=== PATIENT | male | born 1995 | race Two or more races ===

== ENCOUNTER 2020-12-31 22:40 | Emergency (ER) | payer MEDICAID, OTHER ==
[~2020-12-31] VITALS: Ht 188 cm; Wt 131.5 kg
[2021-01-01 01:25] VITALS: BP 139/92
== END 2021-01-01 02:16 | disposition home or self-care (01) ==
LOC: ER 22:40
DX: B02.9 Zoster without complications (principal); E66.09 Other obesity due to excess calories

== ENCOUNTER 2025-07-08 15:25 | Emergency (ER) | payer MEDICAID, OTHER ==
[~2025-07-08] VITALS: Ht 188 cm; Wt 129.5 kg
--- NOTE | 2025-07-08 16:08 | ED.PDOC ---
Foreign Body HPI Comments 30 y/o M, presents to the ED for CC of possible foreign body remnant in left hand. Patient states, he accidently drilled into his left hand with a power drill. At this time patient c/o 8/10 pain to his left hand. No other symptoms or modifying factors are present at this time. No active bleed. Patient's tetanus is up-to-date. Chief Complaint: Foreign Body Time Seen by MD: 16:00 History of Present Illness: Nurses Notes, Medications, Allergies Allergies: Coded Allergies: NO KNOWN ALLERGIES (Unverified , 07/08/25) Information Source: Patient Mode of Arrival: Ambulatory Timing: Minutes Duration: Since onset Severity: Moderate Prehospital treatment: None Location: Left, Other (hand) Context: Injury, Accidental Foreign Body: Other (drill) Associated signs and symptoms: None Past Medical History PAST MEDICAL HISTORY: Denies Surgical History: Denies all surgeries Family History Family History: Reviewed,noncontributory to illness, No family hx of Cancer, No family hx of DM, No family hx of Heart anders, No family hx of HTN, No family hx ofKidney anders, No family hx of Liver anders, No family hx of Lung anders, No family hx of Stroke Social History Smoker: Non-Smoker Alcohol: Denies ETOH Use Drugs: Denies Drug Use Lives In: Home Constitutional: denies: chills, diaphoresis, fatigue, fever, malaise, sweats, weakness, others EENTM: denies: blurred vision, double vision, ear bleeding, ear discharge, ear drainage, ear pain, ear ringing, eye pain, eye redness, hearing loss, mouth pain, mouth swelling, nasal discharge, nose bleeding, nose congestion, nose pain, photophobia, tearing, throat pain, throat swelling, voice changes, others Respiratory: denies: cough, hemoptysis, orthopnea, SOB at rest, shortness of breath, SOB with excertion, stridor, wheezing, others Cardiovascular: denies: chest pain, dizzy spells, diaphoresis, Dyspnea on exertion, edema, irregular heart beat, left arm pain, lightheadedness, palpitations, PND, syncope, others Gastrointestinal: denies: abdomen distended, abdominal pain, blood streaked bowels, constipated, diarrhea, dysphagia, difficulty swallowing, hematemesis, melena, nausea, poor appetite, poor fluid intake, rectal bleeding, rectal pain, vomiting, others Genitourinary: denies: burning, dysuria, flank pain, frequency, hematuria, incontinence, penile discharge, penile sore, pain, testicle pain, testicle swelling, urgency, others Neurological: denies: dizziness, fainting, headache, left sided numbness, left sided weakness, numbness, paresthesia, pre-existing deficit, right sided numbness, right sided weakness, seizure, speech problems, tingling, tremors, weakness, others Musculoskeletal: denies: back pain, gout, joint pain, joint swelling, muscle pain, muscle stiffness, neck pain, others Integumetry: reports: wounds (Puncture wound to left hand); denies: bruises, change in color, change in hair/nails, dryness, laceration, lesions, lumps, rash, others Allergic/Immunocompromised: denies: Difficulty Healing, Frequent Infections, Hives, Itching, others Hematologic/Lymphatic: denies: anemia, blood clots, easy bleeding, easy bruising, swollen glands, others Endocrine: denies: excessive hunger, excessive sweating, excessive thirst, excessive urination, flushing, intolerance to cold, intolerance to heat, unexplained weight gain, unexplained weight loss, others Psychiatric: denies: anxiety, bipolar disorder, depression, hopeless, panic disorder, schizophrenia, sleepless, suicidal, others All Other Systems: Reviewed and Negative Physical Exam General Appearance: Moderate Distress ([id number] distress dependent on whether the patient moves his hand.), Normal HEENT: Normal ENT Inspection, Pharynx Normal, TMs Normal Neck: Full Range of Motion, Non-Tender, Normal, Normal Inspection Respiratory: Chest Non-Tender, Lungs Clear, No Accessory Muscle Use, No Respiratory Distress, Normal Breath Sounds Cardiovascular: No Edema, No JVD, No Murmur, No Gallop, Normal Peripheral Pulses, Regular Rate/Rhythm Breast Exam: Deferred Gastrointestinal: No Organomegaly, Non Tender, No Pulsatile Mass, Normal Bowel Sounds, Soft Genitalia: Deferred Pelvic: Deferred Rectal: Deferred Extremities: Other (Left hand reveals a puncture wound at the webbing between the 1st and 2nd digit that the patient states moves towards the dorsal aspect of the thenar eminence. No active bleeding. Unable to appreciate any foreign body.) Neurologic: Alert Cerebellar Function: NOT DONE Reflexes: NOT DONE Skin: Dry, Normal Color, Warm Lymphatic: No Adenopathy Was a procedure done? Was a procedure done?: No FB Differential Dx Differential Diagnosis: Laceration, Perforation, Other (Retained foreign body) X-Ray, Labs, Meds, VS Vital Signs Date Time Temp Pulse Resp B/P (MAP) Pulse Ox O2 Delivery O2 Flow Rate FiO2 07/08/25 15:26 97.8 71 16 143/87 96 97.8 Current Medications Medications (Trade) Dose Ordered Sig/Alejandro Route Start Time Stop Time Status Last Admin Neomycin/ Polymyxin/ Bacitracin (Triple Antibiotic) 1 applic ONCE ONCE TOP 07/08/25 16:00 07/08/25 16:01 DC 07/08/25 16:28 X-Ray, Labs, Meds, VS Comment All studies performed the ED were evaluated by me personally. There was no radiodense foreign bodies noted on the x-ray. Patient sustained a puncture wound. Patient will be prescribed oral antibiotics and advised him to keep the wound clean and change dressing daily. Time of 1ST Reevaluation: 17:58 Reevaluation 1ST: Improved Consultation: PCP Patient Education/Counseling: Diagnosis, Treatment Family Education/Counseling: Diagnosis, Treatment, No Family Present Departure 1 Departure Time of Disposition: 17:59 Impression: Primary Impression: Puncture wound Disposition: HOME / SELF CARE / HOMELESS Condition: Stable Additional Instructions: Advise utilizing antibiotics as directed until completion as well as pain medication as needed. Patient should do daily dressing changes. e-Prescriptions Acetaminophen (Acetaminophen) 500 Mg Tab 500 MG PO Q4HP PRN, #30 TAB Prov: JERE DICKSON PAC 07/08/25 Ibuprofen Micronized (Ibuprofen) 800 Mg Tab 800 MG PO Q8HP PRN, #20 TAB Prov: JERE DICKSON PAC 07/08/25 Cephalexin (KEFLEX CAPSULE) 250 Mg Cp 1 CAP PO QID for 7 Days, #28 CAP Prov: JERE DICKSON PAC 07/08/25 Discharged With: Self, Friend Critical Care Note Critical Care Time?: No Stability Stability form required: No Heart Score Heart Score: Heart Score Response (Comments) Value History N/A 0 EKG N/A 0 Age N/A 0 Risk Factors N/A 0 Troponin N/A 0 Total 0 I personally scribed for JERE DICKSON PAC ([employer]) on 07/08/25 at 16:08. Electronically submitted by Lay Alcaraz ([email or web address]). I personally scribed for JERE DICKSON PAC ([employer]) on 07/08/25 at 16:11. Electronically submitted by Lay Alcaraz ([email or web address]). JERE DICKSON PAC Jul 08, 2025 16:08
[2025-07-08] MEDS: NEOMYCIN-BACITRACIN-POLYM UNITDOSE PKG TOP OINT TOP ONE (16:28)
[2025-07-08] MEDS: KETOROLAC TROMETH 60MG/2ML VIAL IM ONE (16:28)
--- NOTE | 2025-07-08 17:36 | DVH ---
CLINICAL INDICATION: Puncture wound between 1st and 2nd digit with pain and swelling. TECHNIQUE: XYXY L HAND 3V XRAY Comparison: None FINDINGS/IMPRESSION: : No radiopaque foreign body. No fracture or malalignment. Generalized soft tissue edema.
[2025-07-08] MEDS ORDERED: IBUP-1455 PO (18:01)
[2025-07-08] MEDS ORDERED: CEPH250C PO (18:01)
[2025-07-08] MEDS ORDERED: ACET500T58 PO (18:01)
[2025-07-08 18:17] VITALS: BP 133/72; PULSE 77; RESP 17; TEMP 98.1
[2025-07-08 18:18] VITALS: O2SAT 97
== END 2025-07-08 18:17 | disposition home or self-care (01) ==
LOC: ER 15:32
DX: S61.032A Puncture wound without foreign body of left thumb without damage to nail, initial encounter (principal); S61.231A Puncture wound without foreign body of left index finger without damage to nail, initial encounter; X58.XXXA Exposure to other specified factors, initial encounter; Y93.89 Activity, other specified; Y92.89 Other specified places as the place of occurrence of the external cause; Y99.8 Other external cause status
CPT/HCPCS: 73130